=== PATIENT | male | born 1980 ===

== ENCOUNTER 2021-08-26 09:52 | Outpatient (REF) | payer OTHER, SELFPAY ==
[2021-08-28 19:31] LABS: TS Negative Control Passed; TS Panel A 0; TS Panel B 0; TS Positive Control Passed; TSpotTB Negative (Negative)
== END 2021-08-26 09:53 | disposition home or self-care (01) ==
LOC: HO.HMGCLDS 09:52
PROVIDERS: PCP Nurse Practitioner Family; Visit Provider Nurse Practitioner Family
DX: Z11.1 Encounter for screening for respiratory tuberculosis (principal)
CPT/HCPCS: 36415; 86481

== ENCOUNTER 2022-11-02 20:33 | Emergency (ER) | payer OTHER, SELFPAY ==
--- NOTE | ~2022-11-02 | US_ITS ---
EXAMINATION: US SCROTUM CLINICAL INFORMATION: Left testicular pain with leukocytosis. Rule out abscess. COMPARISON: None TECHNIQUE: A sonogram of the scrotum was performed assessing rodriguez-scale appearance and color Doppler flow. Spectral Doppler analysis of the arterial and venous flow were performed in the testes bilaterally. FINDINGS: RIGHT: Right testicle measures 4.1 x 2.5 x 3 cm, volume 15.8 mL. No focal testicular parenchymal lesions are visualized. Spectral Doppler analysis of the arterial and venous flow is normal in the right testis. Right epididymal head is normal in size. No right hydrocele or varicocele is seen. Right epididymal Doppler flow is normal. LEFT: Left testicle measures 4.3 x 3.2 x 3.1 cm, volume 22.3 mL. No focal testicular parenchymal lesions are visualized. Spectral Doppler analysis of the arterial and venous flow is increased in the left testis. Left epididymal head is normal in size. No left varicocele is seen. Small to moderate-sized hydrocele containing low-level echoes. Appendix epididymis noted incidentally. Left epididymal Doppler flow is increased. The left epididymis appears diffusely enlarged/swollen. US/US scrotum IMPRESSION: 1. Left sided epididymoorchitis. No evidence of abscess. 2. Small to moderate-sized left hydrocele containing low-level echoes.
[2022-11-02 21:15] VITALS: BP 114/90; PULSE 95; RESP 18; TEMP 36.9; O2SAT 99; BMI 29.8
[2022-11-02 21:42] LABS: MANUAL DIFF FLAG NO
[2022-11-02 21:43] LABS: Basophils Absolute Auto 0.1 X10*3/uL (0.0-0.2); Basophils Percent Auto 0.3 % (0-2); Eosinophils Absolute Auto 0.2 X10*3/uL (0.0-0.4); Eosinophils Percent Auto 1.1 % (0-4); Hematocrit 43.2 % (42.0-52.0); Hemoglobin 14.3 g/dl (14.0-18.0); Imm Gran Abs Auto 0.09 X10*3/uL (0.00-0.03); Imm Gran Pct Auto 0.4 % (0.0-0.4); Lymphocytes Absolute Auto 2.7 X10*3/uL (1.2-4.9); Lymphocytes Percent Auto 12.8 % (20-40); Mean Corpuscular HGB Conc 33.1 g/dl (31.0-36.0); Mean Corpuscular Hemoglobin 28.3 pg (27.0-33.0); Mean Corpuscular Volume 85.4 fL (80.0-98.0); Mean Platelet Volume 9.7 fL (9.4-12.4); Monocytes Absolute Auto 1.1 X10*3/uL (0.1-1.2); Monocytes Percent Auto 5.1 % (2-11); Neutrophils Percent Auto 80.3 % (45-73); Platelet Count 351 X10*3/uL (160-400); Red Blood Count 5.06 X10*6/uL (4.60-5.80); Red Cell Distribution Width 12.4 % (11.0-16.0); White Blood Count 21.2 X10*3/uL (4.8-10.8)
[2022-11-02 21:59] LABS: Alanine Aminotransferase 35 U/L (0-40); Albumin Level 4.1 g/dL (3.5-5.0); Alkaline Phosphatase 86 U/L (39-117); Anion Gap 14 (12-20); Aspartate Amino Transferase 21 U/L (5-37); Bilirubin Total 0.6 mg/dL (0.0-1.0); Blood Urea Nitrogen 25 mg/dL (9-16); Calcium 9.4 mg/dL (8.4-10.2); Carbon Dioxide 24 mmol/L (22-29); Chloride 106 mmol/L (96-108); Estimated Glomerular Filt Rate > 60; Glucose Random 100 mg/dL (60-115); Potassium 3.8 mmol/L (3.3-5.1); Sodium 140 mmol/L (135-145); Total Protein 7.1 g/dL (6.5-8.0)
--- NOTE | 2022-11-02 22:12 | ED_ITS ---
HPI - General Adult General Chief complaint: General Medical Stated complaint: swollen testicle Time Seen by Provider: 11/02/22 22:10 Source: patient Mode of arrival: ambulatory Limitations: no limitations History of Present Illness HPI narrative: Patient was playing with his grand daughter about 25 lb jumped on his privates 3 days ago since then complaining of increased pain and swelling which got worse yesterday. No fever no chills no history of STDs before no penile lesion/discharge Related Data Previous Rx's Medication Instructions Recorded atorvastatin 10 mg tablet 10 mg PO DAILY #30 tabs 12/13/21 doxycycline hyclate 100 mg tablet 100 mg PO BID #20 tabs 11/03/22 ibuprofen 600 mg tablet 600 mg PO Q6H PRN fever or pain 11/03/22 #30 tabs levofloxacin 500 mg tablet 500 mg PO DAILY 10 days #10 tabs 11/03/22 Allergies Allergy/AdvReac Type Severity Reaction Status Date / Time shellfish derived Allergy Unknown UNKNOWN Verified 11/02/22 21:22 [SHELLFISH DERIVED] Review of Systems Review of Systems: Yes all other systems are reviewed and are negative [facility] Social History Social History Advance Directives: No Advance Directives Information Provided: Yes Physical Exam ED Vital Signs: Vital Signs - 24 hr 11/02/22 21:15 Temperature 98.4 F Pulse Rate 95 Respiratory Rate 18 Blood Pressure 114/90 H Pulse Oximetry 99 Oxygen Delivery Method Room Air BMI result Body Mass Index 29.8 Appearance: Alert. Oriented X3. No acute distress. ENT: Pharynx normal. Oral Mucosa moist Neck: Normal inspection. Neck supple. CVS: Normal heart rate and rhythm. Pulses normal. Respiratory: No respiratory distress. Equal air entry bilateral, Abdomen: Soft and nontender. Bowel sounds are present, : Tenderness and swelling of left epididymis , testicle size is normal nontender normal axis Skin: Skin warm and dry. Normal skin color. Normal skin turgor. Extremities: No lower extremity edema. No calf tenderness Neuro: Oriented X 3. Medications Administered Discontinued Medications Generic Name Dose Route Start Last Admin Trade Name Freq PRN Reason Stop Dose Admin Ceftriaxone Sodium 500 mg/ 0 mg 11/02/22 23:07 11/02/22 23:33 Lidocaine HCl 1 ml IM 02/20/23 23:08 1 kit ONCE ONE Administration Piperacillin Sod/Tazobactam 50 mls @ 100 mls/hr 11/02/22 22:18 11/02/22 23:40 Sod 3.375 gm/ Sodium Chloride IV 11/02/22 22:47 Infused ONCE ONE Infusion Medical Decision Making Medical Decision Making [facility] Narrative: Patient is sexually active with no history of STDs ultrasound showed left epididymo-orchitis without any penile dischargepatient has significant leukocytosis normal lactic acid level will give him Rocephin 500 mg for GC coverage also was given Zosyn IV discharge patient home on Levaquin and doxycyc line for broad coverage advised to follow-up with urologist Lab Data [facility] Lab Attestation statement: I reviewed the patient's lab results. 11/02/22 21:37 11/02/22 21:37 Labs: Lab Results 11/02/22 11/02/22 11/02/22 Range/Units 21:37 21:37 23:09 WBC 21.2 H (4.8-10.8) X10*3/uL RBC 5.06 (4.60-5.80) X10*6/uL Hgb 14.3 (14.0-18.0) g/dl Hct 43.2 (42.0-52.0) % MCV 85.4 (80.0-98.0) fL MCH 28.3 (27.0-33.0) pg MCHC 33.1 (31.0-36.0) g/dl RDW 12.4 (11.0-16.0) % Plt Count 351 (160-400) X10*3/uL MPV 9.7 (9.4-12.4) fL Immature Gran % (Auto) 0.4 (0.0-0.4) % Neut % (Auto) 80.3 H (45-73) % Lymph % (Auto) 12.8 L (20-40) % [place] % (Auto) 5.1 (2-11) % Eos % (Auto) 1.1 (0-4) % Baso % (Auto) 0.3 (0-2) % Lymph # (Auto) 2.7 (1.2-4.9) X10*3/uL [place] # (Auto) 1.1 (0.1-1.2) X10*3/uL Eos # (Auto) 0.2 (0.0-0.4) X10*3/uL Baso # (Auto) 0.1 (0.0-0.2) X10*3/uL Abs Immat Gran (auto) 0.09 H (0.00-0.03) X10*3/uL Absolute Neuts (auto) 17.0 H (2.0-8.3) x10*3/uL Absolute Nucleated RBC 0.000 (0.0-0.012) X10*3/uL Nucleated RBC % (auto) 0.0 (0.0-0.2) /100WBC Sodium 140 (135-145) mmol/L Potassium 3.8 (3.3-5.1) mmol/L Chloride 106 (96-108) mmol/L Carbon Dioxide 24 (22-29) mmol/L Anion Gap 14 (12-20) BUN 25 H (9-16) mg/dL Creatinine 1.13 (0.5-1.4) mg/dL Estim Creat Clear Calc 103.0 Estimated GFR > 60 Random Glucose 100 (60-115) mg/dL Lactic Acid 0.6 (0.5-2.0) mmol/L Calcium 9.4 (8.4-10.2) mg/dL Total Bilirubin 0.6 (0.0-1.0) mg/dL AST 21 (5-37) U/L ALT 35 (0-40) U/L Alkaline Phosphatase 86 (39-117) U/L Total Protein 7.1 (6.5-8.0) g/dL Albumin 4.1 (3.5-5.0) g/dL Radiology Impression Discussion of test interpretation with radiology: I have reviewed the radiologist's reading. Radiologist Impression: 1.? Left sided epididymoorchitis. No evidence of abscess. 2.? Small to moderate-sized left hydrocele containing low-level echoes. Discharge Plan Discharge Clinical Impression: Acute epididymo-orchitis Patient Disposition: Home, Self-Care Instructions: Epididymo-Orchitis (ED) Additional Instructions: Take antibiotics as prescribed Ibuprofen for pain Follow-up with urologist Scrotal support as advised Report to ER if gets worse/ high fever Prescriptions: New levofloxacin 500 mg tablet 500 mg PO DAILY 10 Days Qty: 10 0RF ibuprofen 600 mg tablet 600 mg PO Q6H PRN (Reason: fever or pain) Qty: 30 0RF doxycycline hyclate 100 mg tablet 100 mg PO BID Qty: 20 0RF No Action atorvastatin 10 mg tablet 10 mg PO DAILY Qty: 30 3RF Referrals: Mitchel Cleaning MD [Physician] - 1 week
[2022-11-02] MEDS: Piperacillin Sodium/Tazobactam 3.375 GM in 0.9 % Sodium Chloride 50 ML IV (23:10)
[2022-11-02] MEDS: cefTRIAXone sodium 500 MG, Lidocaine HCl 1 % MPF 1 ML IM (23:33)
[2022-11-02 23:37] LABS: Lactic Acid 0.6 mmol/L (0.5-2.0)
--- NOTE | 2022-11-03 00:33 | PC.NURSE ---
Pt aox4. IV line removed. Pt tolerated well. Discharge instructions reviewed with pt. Pt verbalizes understanding.
[2022-11-03 00:48] LABS: Appearance Urine Turbid; Color Urine Dark Yellow; Glucose Urine UA Negative (Negative); Leukocyte Esterase Urine Negative (Negative); Nitrite Urine Negative (Negative); PH 5.5 (5.0-9.0); Specific Gravity - Urine >= 1.030 (1.005-1.025); UMIC TRIGGER UACC YES; Urine Blood Negative (Negative); Urine Ketones 15 mg/dL (Negative); Urine Protein 100 (2+) mg/dL (Neg-Trace)
[2022-11-03 01:03] LABS: Bacteria Urine None Seen (None Seen); Other Crystals Urine Present; Squamous Epithelial Cell Urine 0-2 /HPF (0-2); WBC Urine 0-5 /HPF (0-5)
[2022-11-03 03:01] LABS: CT PCR NOT DETECTED (Not Detect.); NG PCR NOT DETECTED (Not Detect.)
== END 2022-11-03 00:34 | disposition home or self-care (01) ==
PROVIDERS: Emergency Provider Internal Medicine; PCP Nurse Practitioner Family
DX: N45.3 Epididymo-orchitis (principal); N50.89 Other specified disorders of the male genital organs; Z79.899 Other long term (current) drug therapy
CPT/HCPCS: 0353U; 36415; 76870; 80053; 81001; 83605; 85025; 87040; 96365; 96372; 99284; J0696; J2543

== ENCOUNTER 2023-02-09 19:17 | Emergency (ER) | payer OTHER, SELFPAY ==
--- NOTE | ~2023-02-09 | XR_ITS ---
EXAMINATION: XR FINGER, RIGHT CLINICAL INFORMATION: Fifth digit pain and deformity COMPARISON: None available. TECHNIQUE: Three views of the right small finger. FINDINGS: The bones and soft tissues are normal. No fracture. Alignment is anatomic. Joint spaces are maintained. XR/XR finger RT min 2V IMPRESSION: Normal finger radiographs.
[2023-02-09 19:30] VITALS: BP 130/86; PULSE 86; RESP 18; TEMP 36.7; O2SAT 98; BMI 27.2
--- NOTE | 2023-02-09 19:32 | ED_ITS ---
HPI - Extremity Injury (Upper) General Chief Complaint: Extremity Injury, Upper Stated Complaint: right pink ?dislocation/fracture Time Seen by Provider: 02/09/23 22:05 Source: patient Mode of arrival: ambulatory Limitations: no limitations History of Present Illness HPI narrative: 42-year-old male presents to the ED for right finger pain. Patient states while putting up a tent he heard a snap in his right pinky finger and is in upward position. Patient states decreased range of motion of tip of finger. Patient denies any bleeding. Related Data Previous Rx's Medication Instructions Recorded atorvastatin 10 mg tablet 10 mg PO DAILY #30 tabs 12/13/21 doxycycline hyclate 100 mg tablet 100 mg PO BID #20 tabs 11/03/22 ibuprofen 600 mg tablet 600 mg PO Q6H PRN fever or pain 11/03/22 #30 tabs levofloxacin 500 mg tablet 500 mg PO DAILY 10 days #10 tabs 11/03/22 naproxen 500 mg tablet 500 mg PO BID PRN pain 7 days #20 02/09/23 tabs Allergies Allergy/AdvReac Type Severity Reaction Status Date / Time shellfish derived Allergy Unknown UNKNOWN Verified 11/02/22 21:22 [SHELLFISH DERIVED] Review of Systems Review of Systems: Right pinky pain Yes all other systems are reviewed and are negative [facility] Social History Social History Advance Directives: No Advance Directives Information Provided: No Physical Exam Vital Signs: Vital Signs: Last Vital Signs Temp 98.1 F 02/09/23 19:30 Pulse 86 02/09/23 19:30 Resp 18 02/09/23 19:30 BP 130/86 02/09/23 19:30 Pulse Ox 98 02/09/23 19:30 O2 Del Method Room Air 02/09/23 19:30 BMI result Body Mass Index 27.2 Const: General: cooperative, healthy appearing, comfortable, no acute distr ess, well developed, alert, awake and Physically active Orientation/consciousness: oriented to person, oriented to place, oriented to time and patient oriented x3 HEENT: Head: Yes normal to inspection, Yes No palpable skull fracture present, Yes normocephalic, Yes atraumatic and No abrasion Eyes: General: appearance normal, both eyes and all related structures Neck: Neck: Yes normal visual inspection, Yes full ROM, Yes no lymphadenopathy, Yes no meningeal signs, Yes trachea midline, Yes supple, No anterior neck swelling and No tender Chest: Chest palpation & inspection: normal inspection of the chest and normal palpation of entire chest wall Resp: Effort & Inspection: normal respiratory effort and able to speak in complete sentences Auscultation: clear to auscultation bilaterally Cardio: Jugular venous distension: no JVD Heart sounds: S1 normal heart sound present and S2 normal heart sound present GI: Inspection: Yes normal to inspection and No abdominal wall ecchymosis Palpation (GI): Soft to palpation, not firm, nontender, no guarding and not rigid : General: No CVA tenderness and Yes no CVA tenderness Back/Spine/Pelvis: Back: no CVA tenderness, No CVA tenderness and No back tenderness Skin: General skin exam: no rashes or lesions noted, elasticity normal and turgor normal Neuro: General: oriented to person, oriented to place, oriented to time, patient oriented x3, gait normal, tone normal, moves all extremities, Normal light touch and pain sensation, no meningeal signs, no focal motor deficits, CN's II-XI intact bilaterally and normal sensation to monofilament Extrem: General: Yes normal to inspection and Yes full ROM Hand/finger images: 1. Tender slight swelling slight deformity. Decreased range of motion at tip of finger. Possible tendon/ligament injury. Capillary refills intact. Rest of extremity normal with normal motor/neuro/vascular exam. Psych: Appearance: grossly normal, well kempt and not disheveled Course Course Course Narrative: RME - 42-year-old [id number]-aoypiefo male presents the ER for evaluation of a right pinky injury today. He states he was sitting up a tent when he heard of snap in his right pinky. He has had deformity, limited range of motion since. RME - x-ray Medications Administered Discontinued Medications Generic Name Dose Route Start Last Admin Trade Name Freq PRN Reason Stop Dose Admin Ibuprofen 800 mg 02/09/23 22:48 02/09/23 23:01 Ibuprofen 800 Mg Tablet PO 02/09/23 22:49 800 mg ONCE ONE Administration Medical Decision Making Medical Decision Making MDM Narrative: 42-year-old male presents to the ED for right finger pain. Patient states while putting up a tent he heard a snap in his right finger anyone upward position. Patient states decreased range of motion of tip of finger. Patient denies any bleeding. X-ray negative for fracture or dislocation. Patient informed he probably injured or tore tendon/ligament. Patient placed in finger splint given pain meds and will follow-up with orthopedics/hand surgeon Discharge Plan Discharge Clinical Impression: Finger sprain Patient Disposition: Home, Self-Care Instructions: Finger Sprain (ED) Additional Instructions: X-ray came back negative for fracture or dislocation you have a finger sprain. There is possibility of tendon/ligament injury of finger. You need to follow-up with your primary care provider or orthopedic/hand surgeon for re-evaluation and MRI. Return to ED for any swelling, redness, bluish black discoloration, severe pain, or any other concerning symptoms. Prescriptions: New naproxen 500 mg tablet 500 mg PO BID PRN (Reason: pain) 7 Days Qty: 20 0RF No Action atorvastatin 10 mg tablet 10 mg PO DAILY Qty: 30 3RF levofloxacin 500 mg tablet 500 mg PO DAILY 10 Days Qty: 10 0RF ibuprofen 600 mg tablet 600 mg PO Q6H PRN (Reason: fever or pain) Qty: 30 0RF doxycycline hyclate 100 mg tablet 100 mg PO BID Qty: 20 0RF Referrals: [facility] [Provider Group] (Right 5th finger sprain possible tendon/ligament injury. May need MRI) Stand Alone Forms: Work/School Release Interventions: ED Discharge Assessment Last Done: 02/09/23 23:03 Discharge Date/Time: 02/09/23 23:03 Print Language: Iraqi
[2023-02-09] MEDS: Ibuprofen 800 MG TABLET PO (23:01)
--- NOTE | 2023-02-09 23:01 | PC.NURSE ---
right pinky splinted [per order, well tolerated by pt
--- NOTE | 2023-02-09 23:02 | PC.NURSE ---
pt medicated per NOV for 6/10 finger pain.
== END 2023-02-09 23:03 | disposition home or self-care (01) ==
PROVIDERS: Emergency Provider Internal Medicine; PCP Nurse Practitioner Family
DX: S63.616A Unspecified sprain of right little finger, initial encounter (principal); X50.9XXA Other and unspecified overexertion or strenuous movements or postures, initial encounter; E78.5 Hyperlipidemia, unspecified; Z79.02 Long term (current) use of antithrombotics/antiplatelets; Z79.899 Other long term (current) drug therapy; Y93.89 Activity, other specified; Y92.9 Unspecified place or not applicable; Y99.9 Unspecified external cause status; F17.210 Nicotine dependence, cigarettes, uncomplicated
CPT/HCPCS: 29130; 73140; 99284

== ENCOUNTER → 2023-02-16 09:37 | Outpatient (BNVA) | payer OTHER, SELFPAY | PROVIDERS: PCP Nurse Practitioner Family; Visit Provider Orthopaedic Surgery | DX: M20.011 Mallet finger of right finger(s) (principal) | CPT/HCPCS: 99202 ==

== ENCOUNTER 2023-03-30 09:43 | Outpatient (AMB) | payer OTHER, SELFPAY ==
[2023-03-30 09:53] VITALS: BMI 27.2
--- NOTE | 2023-03-30 09:53 | A.OFFVIS_ITS ---
Intake Vital Signs 03/30/23 09:53 Height 5 ft 8 in Weight 179 lb BMI 27.2 Intake Visit Reasons: F/U- RT pinky ligament/ tendon inj? Intake Note: Jose Alfredo, 42 year old right hand dominant man, presents today for his right small finger injury, DOI: 02/09/23. States he cont's to use his finger splint. States he has on and off pain in his sf pip joint. Allergies shellfish derived [SHELLFISH DERIVED] Allergy (Unknown, Verified 03/30/23 09:57) UNKNOWN HPI F/U- RT pinky ligament/ tendon inj? HPI Details Jose Alfredo is a 42 year old right hand dominant man who presents for a fol low-up of his right small finger mallet finger, DOI: 02/09/23. 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 Seen today with his young daughter who is going into 4th grade He has been wearing his splint as instructed. He is happy that his finger is now able to stay extended. 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 Review of Systems Const All systems reviewed & are unremarkable except as noted in HPI and below Physical Exam Vital Signs: BMI result Body Mass Index 27.2 Const General: no acute distress and alert Orientation/consciousness: patient oriented x3 Neuro General: patient oriented x3 Extrem Other: Evaluation of Right Upper Extremity: The patient is alert, oriented, and in no acute distress Neuro: Median, Ulnar, Radial nerves motor and sensory intact and sensation is normal to the tips of all digits Vascular: Cap refill brisk ROM: He can bring all his fingers closed to a fist, including the small finger He can bring all of his fingers out into full extension including the DIP joint of the right small finger. Psych Appearance: grossly normal Affect: normal affect Attitude: cooperative Assessment & Plan Assessment & Plan (1) Mallet deformity of right little finger: Code(s): M20.011 - Mallet finger of right finger(s) Plan Assessment & Plan: 1. Right small finger tendinous mallet deformity DOI: 02/09/23, while setting up a tent I educated him about this condition This has been managed non operatively with 247 splinting. He will continue to wear his finger splint 8 hours daily for the next 6 weeks, and with any athletic activities or when playing with his children He is pleased with the results of his care. He can follow up prn Scribed for Itzel Braxton MD by James Bass, medical appointment clerk, on 03/30/23 at 10:05 AM, EST. Coding Level of Care Code Est Pt Level 3 (98685) Diagnoses Mallet deformity of right little finger M20.011
== END 2023-03-30 10:14 | disposition home or self-care (01) ==
PROVIDERS: PCP Nurse Practitioner Family; Visit Provider Orthopaedic Surgery
DX: M20.011 Mallet finger of right finger(s) (principal)
CPT/HCPCS: 99213

== ENCOUNTER → 2023-03-30 09:43 | Outpatient (BNVA) | payer OTHER, SELFPAY | PROVIDERS: PCP Nurse Practitioner Family; Visit Provider Orthopaedic Surgery | DX: M20.011 Mallet finger of right finger(s) (principal) | CPT/HCPCS: 99212 ==

== ENCOUNTER 2024-10-12 09:14 | Outpatient (REF) | payer OTHER, SELFPAY ==
[2024-10-15 14:33] LABS: TS Negative Control Passed; TS Panel A 0; TS Panel B 0; TS Positive Control Passed; TSpotTB Negative (Negative)
== END 2024-10-12 09:15 | disposition home or self-care (01) ==
LOC: HO.HMGCLDS 09:14
PROVIDERS: Visit Provider Nurse Practitioner Family
DX: Z11.1 Encounter for screening for respiratory tuberculosis (principal)
CPT/HCPCS: 36415; 86481

== ENCOUNTER 2024-10-12 09:14 | Outpatient (AMB) | payer BC, SELFPAY ==
--- NOTE | 2024-10-12 09:52 | AM.OFFWIN_ITS ---
Intake Vital Signs 10/12/24 09:54 Weight 224 lb BP 112/74 Blood Pressure Location Rt brachial Position Sitting Pulse 71 Pulse Source Pulse Oximeter Pulse Oximetry (%) 96 Oxygen Delivery Method Room Air Intake Visit Reasons: EP-TB clearance Intake Note: Patient here for TB test for work. Patient Tobacco Use Status: Current everyday Tobacco user Allergies shellfish derived [SHELLFISH DERIVED] Allergy (Unknown, Verified 10/12/24 09:54) UNKNOWN Do you need a note to return to daycare/school/sports/work: No HPI HPI Comments History of Present Illness Details 44 y/o male patient who presents to the walk in clinic asking for Blood work to screen for TB for work. [facility] Medical History (Updated 10/12/24 @ 10:17 by Linh Moulton NP) Encounter for screening for respiratory tuberculosis High cholesterol Social History Patient Tobacco Use Status: Current everyday Tobacco user Tobacco use type: Cigarette Cigarette Packs Per Day: 0.5 Cigarettes Per Day: 10 Current occupational status: employed Current occupation: [employer] hand Review of Systems Const All systems reviewed & are unremarkable except as noted in HPI and below Physical Exam Vital Signs: Last Vital Signs Pulse 71 10/12/24 09:54 BP 112/74 10/12/24 09:54 Pulse Ox 96 10/12/24 09:54 Oxygen Delivery Method Room Air 10/12/24 09:54 Const General: cooperative, comfortable and no acute distress Orientation/consciousness: patient oriented x3 Resp Effort & Inspection: normal respiratory effort and able to speak in complete sentences Auscultation: clear to auscultation bilaterally Cardio Heart sounds: S1 normal heart sound present and S2 normal heart sound present Neuro General: patient oriented x3 Assessment & Plan Assessment & Plan (1) Encounter for screening for respiratory tuberculosis: Code(s): Z11.1 - Encounter for screening for respiratory tuberculosis Plan: Ordered T-Spot Will call Patient with results when Available. Orders: Orders T Spot TB Today Z11.1 - Encounter for screening for respiratory tuberculosis Coding Level of Care Code Est Pt Level 3 (27203) Diagnoses Encounter for screening for respiratory tuberculosis Z11.1 Time Spent (min) 15
[2024-10-12 09:54] VITALS: BP 112/74; PULSE 71; O2SAT 96
== END 2024-10-12 10:27 | disposition home or self-care (01) ==
PROVIDERS: Visit Provider Nurse Practitioner Family
DX: Z11.1 Encounter for screening for respiratory tuberculosis (principal)